=== PATIENT | female | born 2000 ===

== ENCOUNTER 2024-02-28 10:56 | Outpatient (CLI) | payer BC, SELFPAY ==
--- NOTE | ~2024-02-28 | US_ITS ---
EXAMINATION: US OB /maternal detail DATE: 02/28/2024 11:31 INDICATION: anatomic survey. TECHNIQUE: Real-time ultrasound of the pelvis was performed. COMPARISON: None. FINDINGS: There is a single living fetus in vertex presentation. The placenta is anterior, 6.2 cm from the cer vix. The cervical length is 2.7 cm on transabdominal images, which is normal. heart rate is 142 beats per minute (bpm). The amniotic fluid volume is subjectively normal. The following biometric data were obtained: Biparietal diameter (BPD): 4.6 cm; head circumference (HC): 17.1 cm; abdominal circumference (AC): 13 .7 cm; femur length (FL): 3.2 cm. These measurements are concordant. Estimated weight is 296 g +/- 44 g, which correlates with the 93rd percentile when 07/27/24 is u sed as estimated date of delivery. As single measurements, these parameters are each equal to the following estimated gestational ages: BPD: 19 weeks 6 days. HC: 19 weeks 5 days. AC: 19 weeks 1 days. FL: 19 weeks 6 days. estimated gestational age based solely on measurements from this exam is 19 weeks 5 days +/- 1 weeks 3 days. The cerebral ventricles, cerebellum, cisterna magna, nuchal fold, and visualized portions of the spin e are normal. The heart is normal. The diaphragm, stomach, kidneys, and bladder are normal. There are two umbilical arteries to yield a 3-vessel cord. The cord insertion is normal. IMPRESSION: 1. Single living fetus in vertex presentation. 2. Large for gestational age. Estimated weight is 296 g +/- 44 g, which correlates with the 93 rd percentile when 07/27/24 is used as estimated date of delivery. Reviewed, dictated and finalized at location A. IMPRESSION: 1. Single living fetus in vertex presentation. 2. Large for gestational age. Estimated weight is 296 g +/- 44 g, which correlates with the 93rd percentile when 07/27/24 is used as estimated date of d elivery.
== END 2024-02-28 10:57 ==
LOC: MICIMG 10:59
PROVIDERS: PCP Advanced Practice Midwife; Visit Provider Advanced Practice Midwife
DX: Z36.89 Encounter for other specified antenatal screening (principal); O36.62X0 Maternal care for excessive fetal growth, second trimester, not applicable or unspecified
CPT/HCPCS: 76805